=== PATIENT | male | born 1965 | race African-American/Black ===

== ENCOUNTER → 2017-12-08 | Outpatient (CLI) | payer MEDICARE, MEDICAID ==
[~2017-12-08] MED LIST: ASPI-715 PO; ASPI81TA94 PO; CARV25TA77 PO; ENAL2.5T52 PO; HEART; LOR5/325 PO; VALS1TAB72 PO; VALS320T12 PO
[2017-12-08 12:23] LABS: PLATELET COUNT, AUTOMATED 194 K/uL (150-450)
== END ==
LOC: LAB 11:41
PROVIDERS: ATTEND Internal Medicine
DX: I50.42 Chronic combined systolic (congestive) and diastolic (congestive) heart failure (principal)
CPT/HCPCS: 36415; 81001; 82040; 82247; 82310; 82374; 82435; 82465; 82565; 82947; 83718; 84075; 84132; 84155; 84295; 84443; 84450; 84460; 84478; 84520; 85025

== ENCOUNTER → 2018-01-13 | Outpatient (CLI) | payer MEDICARE, MEDICAID | LOC: LAB 12:44 | PROVIDERS: ATTEND Internal Medicine | DX: R53.83 Other fatigue (principal); R17 Unspecified jaundice | CPT/HCPCS: 84443 ==

== ENCOUNTER → 2018-02-22 | Outpatient (CLI) | payer MEDICARE, MEDICAID ==
[~2018-02-22] MED LIST changes: +MULT1CAP59 PO
[2018-02-22 11:59] LABS: PLATELET COUNT, AUTOMATED 204 K/uL (150-450)
== END ==
LOC: LAB 10:47
PROVIDERS: ATTEND Nurse Practitioner Family
DX: R17 Unspecified jaundice (principal)
CPT/HCPCS: 36415; 82040; 82247; 82248; 82310; 82374; 82435; 82565; 82947; 84075; 84132; 84155; 84295; 84450; 84460; 84520; 85025

== ENCOUNTER → 2018-02-25 | Outpatient (CLI) | payer MEDICARE, MEDICAID | LOC: LAB 15:31 | PROVIDERS: ATTEND Nurse Practitioner Family | DX: I50.9 Heart failure, unspecified (principal) | CPT/HCPCS: 36415; 83880 ==

== ENCOUNTER → 2018-02-25 | Outpatient (CLI) | payer MEDICARE, MEDICAID | LOC: US 00:24 | PROVIDERS: ATTEND Nurse Practitioner Family | DX: I51.7 Cardiomegaly (principal); Q21.0 Ventricular septal defect; I34.1 Nonrheumatic mitral (valve) prolapse | CPT/HCPCS: 93325; C8929; Q9957 ==

== ENCOUNTER → 2018-03-23 | Outpatient (CLI) | payer MEDICAID, MEDICARE ==
[~2018-03-23] MED LIST changes: +LOSA25TA50 PO
== END ==
LOC: LAB 15:05
PROVIDERS: ATTEND Internal Medicine
DX: I50.9 Heart failure, unspecified (principal); R17 Unspecified jaundice
CPT/HCPCS: 36415; 82040; 82247; 82310; 82374; 82435; 82565; 82947; 83880; 84075; 84132; 84155; 84295; 84450; 84460; 84520

== ENCOUNTER → 2018-03-26 | Outpatient (CLI) | payer MEDICAID, MEDICARE ==
--- NOTE | 2018-03-26 11:38 | RADIOLOGY IMAGING REPORT ---
[place] [facility] [place]: Denis Gauthier : 1965 MR: [id number] V: [id number] EXAM DATE: ORDERING PHYSICIAN: PATRICIA PIZARRO TECHNOLOGIST: Location: [facility] Patient: Denis Gauthier : 1965 Visit/Account:[id number] Date of Sevice: 03/26/2018 Exam type: ARTERIAL RENAL DUPLEX DOPPLER INDICATION: Chronic kidney disease and hypertension. Comparison: None available Renal ultrasound: The right kidney is normal in size measuring 10.3 x 5.1 x 5.1 cm.. No concerning focal renal lesion. Normal echogenicity. No renal calculus. No hydronephrosis. The left kidney is normal in size measuring 10.1 x 4.4 x 4.5 cm. No concerning focal renal lesion. No rmal echogenicity. No renal calculus. No hydronephrosis. Renal artery stenosis protocol: The renal arteries from their origins at the aorta to the renal guille were evaluated by color, power, and spectral Doppler. The right renal artery was partially visualized and interrogated. The mid artery was not well visual ized The peak systolic velocity in the proximal and distal renal arteries is 37 and 59 cm/s and gives an aorta systolic velocity ratio up to 0.9 (abnormal is greater than 3.5). Estimated diameter reduc tion on the right is 0 - 59 %. The left renal artery was partially visualized and interrogated. The mid artery was not well visuali zed The peak systolic velocity in the proximal and distal renal arteries is 21 and 42 cm/s and gives an aorta systolic velocity ratio up to 1.1 (abnormal is greater than 3.5). Estimated diameter reduct ion on the left is 0 - 59 %. The segmental renal arteries bilaterally demonstrate normal wave forms. Resistive indices of the arcu ate vessels bilaterally are bilaterally less than 0.8 which is normal. I Impression: Renal ultrasound: 1. Normal renal ultrasound. Renal artery stenosis study: 1. No evidence of main renal artery stenosis bilaterally. Estimated diameter reduction bilaterally is 0 - 59 %. Report Dictated By: Ricky Plata MD at 03/26/2018 11:31 AM Report E-Signed By: Ricky Plata MD at 03/26/2018 11:35 AM WSN:[id number]
== END ==
LOC: US 02:52
PROVIDERS: ATTEND Internal Medicine
DX: I12.9 Hypertensive chronic kidney disease with stage 1 through stage 4 chronic kidney disease, or unspecified chronic kidney disease (principal); N18.3 Chronic kidney disease, stage 3 (moderate); I50.9 Heart failure, unspecified; I42.9 Cardiomyopathy, unspecified; R94.5 Abnormal results of liver function studies
CPT/HCPCS: 93975

== ENCOUNTER → 2018-04-15 | Outpatient (CLI) | payer MEDICARE, MEDICAID ==
[~2018-04-15] MED LIST changes: +LISI5TAB25 PO
== END ==
LOC: LAB 14:23
PROVIDERS: ATTEND Internal Medicine
DX: I50.9 Heart failure, unspecified (principal); N18.9 Chronic kidney disease, unspecified; I42.9 Cardiomyopathy, unspecified
CPT/HCPCS: 36415; 82310; 82374; 82435; 82565; 82947; 83880; 84132; 84295; 84520

== ENCOUNTER → 2018-06-11 | Outpatient (CLI) | payer MEDICARE, MEDICAID ==
[~2018-06-11] MED LIST changes: -LOSA25TA50 PO; +LOSA25TA52 PO; +REGADENOSON 0.4 MG/5 ML SYR ONE; +SPIR25TA80 PO
[2018-06-11 12:09] LABS: LDL CHOLESTEROL 35 mg/dl
--- NOTE | 2018-06-12 08:29 | RT STRESS TEST REPORT ---
FACILITY: [facility] PATIENT NAME: EDDIE REYES : [id number] MR: [id number] V: [id number] EXAM DATE: ORDERING PHYSICIAN: NESTOR GOMEZ TECHNOLOGIST: [employer] Time: 2018-06-11 14:45:29 Total Exercise Time: 00:01:00 Test Indications: CHF Medications: see nuc med sheet Protocol: LEXISCAN Max HR: 080 BPM 48% of Pred: 166 BPM Max BP: 124/103 mmHG Max Work Load: 1.0 METS Confirmed by MEGAN BLANCO ([id number]) on 06/12/2018 8:28:37 AM Referred By: Overread By: MEGAN BLANCO
--- NOTE | 2018-06-13 08:16 | RADIOLOGY IMAGING REPORT ---
[place] [facility] [place] NAME: Denis Gauthier : 1965 MR: [id number] V: [id number] EXAM DATE: [id number] ORDERING PHYSICIAN: NESTOR GOMEZ TECHNOLOGIST: [place] [facility] [place] Patient: Denis Gauthier : 1965 Visit/Account:[id number] Date of Sevice: 06/11/2018 EXAMINATION: Single isotope SPECT imaging with regadenoson infusion and gated SPECT imaging. DATE OF EXAMINATION: 06/11/2018. DATE OF INTERPRETATION: 06/13/2018. REQUESTING PHYSICIAN: NESTOR GOMEZ. INDICATION: The patient is a 53-year-old male evaluated for CAD. PROCEDURE: After informed consent the patient received an intravenous injection of 12.5 mCi of Tc-99 m sestamibi followed at an appropriate time interval by rest imaging. The patient then subsequently received an intravenous infusion of 0.4 mg of regadenoson per protocol without complication. Resting heart rate was 71 bpm with a peak heart rate of 78 bpm. Blood pressure at rest was 124 / 103 and fo llowing infusion was 124 / 96. Baseline EKG demonstrates sinus rhythm with lateral T-wave inversions . There were no EKG changes of ischemia following infusion. Symptoms were nonspecific. The patient then received an intravenous injection of 30.6 mCi of Tc-99m sestamibi followed by stress imaging. RAW DATA: Examination of the summed raw data revealed a good quality study. MYOCARDIAL PERFUSION: The tomographic images demonstrate a mild inferior defect that is small in siz e at rest which improves with prone imaging, most consistent with diaphragmatic attenuation. There is otherwise normal myocardial perfusion with no evidence of infarct or ischemia. There is no TID. GATED IMAGES: The gated images demonstrate severely diminished ejection fraction 17% with global hyp okinesis. IMPRESSION: 1. Nondiagnostic Lexiscan stress ECG 2. Normal myocardial perfusion scan with evidence of diaphragmatic attenuation. 3. Severely decreased LV systolic function; LVEF 17%. 4. Based on the results of this exam, the patient appears to be at high risk for future cardiovascula r events because of decreased ejection fraction. Report Dictated By: Stone Alicea at 06/13/2018 8:09 AM Report E-Signed By: Stone Alicea at 06/13/2018 8:12 AM WSN:[id number]
== END ==
LOC: NUC 04:07
PROVIDERS: ATTEND Internal Medicine Cardiovascular Disease
DX: I50.22 Chronic systolic (congestive) heart failure (principal)
CPT/HCPCS: 36415; 78452; 85027; 93017; A9500; J2785; 82310; 82374; 82435; 82465; 82565; 82947; 83718; 84132; 84295; 84478; 84520

== ENCOUNTER 2018-08-06 13:35 | Emergency (ER) | payer MEDICARE, MEDICAID ==
[~2018-08-06 13:35] MED LIST changes: -REGADENOSON 0.4 MG/5 ML SYR ONE
--- NOTE | 2018-08-06 13:43 | ER Report ---
History and Physical Time Seen By MD: 13:44 HPI/ROS This is a 53-year-old male with a history of cardiomyopathy and an EF of less than 20%. He presents emergency department stating that when he got out of bed this morning, his legs felt "heavy" underneath him. His legs subsequently buckled and he lowered himself to the floor. He denies syncope. No chest pain or headache. He did not strike his head. He denies pain in his lower extremities. There was some confusion as to whether he was complaining of pain in his right hip but he denies pain in his hip or knee during my interview with him. His only complaint is the episode that happened when he woke up this morning. He currently denies any complaints. Remainder of the 14 system rev: Yes Allergies: Coded Allergies: No Known Drug Allergies (Verified , 02/03/18) verified 02/03/2018 Home Meds Active Scripts Furosemide (FUROSEMIDE) 20 Mg Tablet, 1 TAB PO QDAY for 14 Days, #14 TAB Prov:ZENA GEORGE MD 08/06/18 Spironolactone (SPIRONOLACTONE) 25 Mg Tablet, 25 MG PO QAM, #30 TAB 3 Refills Prov:PATRICIA PIZARRO MD 04/28/18 Carvedilol (COREG) 25 Mg Tablet, 1 MG PO BID for 90 Days, #90 TAB Prov:PATRICIA PIZARRO MD 03/16/18 Reported Medications Lisinopril (LISINOPRIL) 5 Mg Tablet, 5 MG PO QDAY, TAB 04/16/18 Multivitamin (MULTIVITAMINS) 1 Each Capsule, 1 TAB PO QAM, CAPSULE 02/03/18 Aspirin (ASPIRIN) 81 Mg Tab.chew, 1 TAB PO QDAY, TAB.CHEW 02/18/17 Reviewed Nurses Notes: Yes Old Medical Records Reviewed: Yes Hx Smoking: No Smoking Status: Never Smoker Hx Substance Use Disorder: No Hx Alcohol Use: No Constitutional Vital Sign - Last 24 Hours 08/06/18 08/06/18 08/06/18 08/06/18 13:35 13:47 13:49 14:00 Temp 97.7 Pulse ??? 84 Resp 20 B/P (MAP) 125/104 (111) 125/104 117/102 (107) Pulse Ox 93 O2 Delivery Room Air 1108/06/18 08/06/18 08/06/18 14:05 14:30 14:35 15:00 Pulse 82 76 Resp 28 22 B/P (MAP) 111/94 (100) 110/93 (99) Pulse Ox 92 92 08/06/18 15:05 Pulse 77 Resp 17 Pulse Ox 88 Physical Exam General Appearance: The patient is alert, has no immediate need for airway protection and no current signs of toxicity. Eyes: Pupils equal and round no injection. Respiratory: Chest is non tender, lungs are clear to auscultation. Cardiac: regular rate and rhythm Gastrointestinal: Abdomen is soft and non tender, no masses, bowel sounds normal. Musculoskeletal: No spinal TTP Neck: Neck is supple and non tender. Extremities have full range of motion and are non tender. There is 3+ pitting edema b/l to his thighs. Skin: No rashes or lesions. DIFFERENTIAL DIAGNOSIS: After history and physical exam differential diagnosis was considered for syncope, dysrhythmia, CHF exacerbation, traumatic injuries from a fall, electrolyte disturbance, fluid retention, DVT. Medical Decision Making Data Points Result Diagram: 08/06/18 1430 08/06/18 1430 Laboratory Hematology Test 08/06/18 14:30 Red Blood Count 4.75 M/uL (4.00-5.60) Mean Corpuscular Volume 94.3 fL (80.0-96.0) Mean Corpuscular Hemoglobin 30.6 pg (26.0-33.0) Mean Corpuscular Hemoglobin Concent 32.4 g/dL (32.0-36.0) Red Cell Distribution Width 17.5 % (11.5-14.5) Mean Platelet Volume 9.1 fL (7.2-11.1) Neutrophils (%) (Auto) 68.0 % (39.4-72.5) Lymphocytes (%) (Auto) 18.1 % (17.6-49.6) Monocytes (%) (Auto) 9.7 % (4.1-12.4) Eosinophils (%) (Auto) 2.9 % (0.4-6.7) Basophils (%) (Auto) 1.3 % (0.3-1.4) Nucleated RBC Relative Count (auto) 0.1 /100WBC Neutrophils # (Auto) 3.1 K/uL (2.0-7.4) Lymphocytes # (Auto) 0.8 K/uL (1.3-3.6) Monocytes # (Auto) 0.4 K/uL (0.3-1.0) Eosinophils # (Auto) 0.1 K/uL (0.0-0.5) Basophils # (Auto) 0.1 K/uL (0.0-0.1) Nucleated RBC Absolute Count (auto) 0.00 K/uL Sodium Level 142 mmol/L (137-145) Potassium Level 3.9 mmol/L (3.5-5.0) Chloride Level 111 mmol/L (98-107) Carbon Dioxide Level 21 mmol/L (22-30) Blood Urea Nitrogen 31 mg/dl (9-21) Creatinine 1.20 mg/dl (0.66-1.25) Glomerular Filtration Rate Calc > 60.0 Random Glucose 111 mg/dl (75-110) Calcium Level 8.8 mg/dl (8.4-10.2) Total Bilirubin 1.5 mg/dl (0.2-1.3) Aspartate Amino Transf (AST/SGOT) 19 U/L (0-35) Alanine Aminotransferase (ALT/SGPT) 30 U/L (0-56) Alkaline Phosphatase 142 U/L (0-126) Total Protein 6.4 g/dl (6.3-8.2) Albumin 3.4 g/dl (3.5-5.0) Chemistry Test 08/06/18 14:30 White Blood Count 4.5 k/uL (4.5-11.0) Red Blood Count 4.75 M/uL (4.00-5.60) Hemoglobin 14.5 g/dL (14.0-18.0) Hematocrit 44.8 % (42.0-52.0) Mean Corpuscular Volume 94.3 fL (80.0-96.0) Mean Corpuscular Hemoglobin 30.6 pg (26.0-33.0) Mean Corpuscular Hemoglobin Concent 32.4 g/dL (32.0-36.0) Red Cell Distribution Width 17.5 % (11.5-14.5) Platelet Count 129 K/uL (150-450) Mean Platelet Volume 9.1 fL (7.2-11.1) Neutrophils (%) (Auto) 68.0 % (39.4-72.5) Lymphocytes (%) (Auto) 18.1 % (17.6-49.6) Monocytes (%) (Auto) 9.7 % (4.1-12.4) Eosinophils (%) (Auto) 2.9 % (0.4-6.7) Basophils (%) (Auto) 1.3 % (0.3-1.4) Nucleated RBC Relative Count (auto) 0.1 /100WBC Neutrophils # (Auto) 3.1 K/uL (2.0-7.4) Lymphocytes # (Auto) 0.8 K/uL (1.3-3.6) Monocytes # (Auto) 0.4 K/uL (0.3-1.0) Eosinophils # (Auto) 0.1 K/uL (0.0-0.5) Basophils # (Auto) 0.1 K/uL (0.0-0.1) Nucleated RBC Absolute Count (auto) 0.00 K/uL Glomerular Filtration Rate Calc > 60.0 Calcium Level 8.8 mg/dl (8.4-10.2) Total Bilirubin 1.5 mg/dl (0.2-1.3) Aspartate Amino Transf (AST/SGOT) 19 U/L (0-35) Alanine Aminotransferase (ALT/SGPT) 30 U/L (0-56) Alkaline Phosphatase 142 U/L (0-126) Total Protein 6.4 g/dl (6.3-8.2) Albumin 3.4 g/dl (3.5-5.0) ED Course/Re-evaluation ED Course I asked the patient multiple times and he denies syncope. He did not have a true fall from standing, but instead said his legs felt heavy and buckled underneath of him. I think the having this he feels is from his bilateral lower extremity peripheral edema. Weight him in the emergency department and he is 6 kg heavier then when he saw guillaume Elias in April 2018. I spoke with Dr. Elias about his worsening peripheral edema and weight gain. Again the patient denies chest pain or shortness of breath. He was given Lasix 20mg PO, and will be placed on Lasix 20mg qd and follow up with Dr. Elias next week. Decision to Disposition Date: Aug 06, 2018 Decision to Disposition Time: 16:19 Depart Departure Latest Vital Signs Vital Signs Date Time Temp Pulse Resp B/P (MAP) Pulse Ox O2 Delivery O2 Flow Rate FiO2 08/06/18 15:05 77 17 88 08/06/18 15:00 110/93 (99) 08/06/18 13:49 97.7 Room Air Impression: Primary Impression: Edema extremities Condition: Improved Disposition: HOME OR SELF-CARE Referrals: PATRICIA PIZARRO MD (PCP) New Scripts Furosemide (FUROSEMIDE) 20 Mg Tablet 1 TAB PO QDAY for 14 Days, #14 TAB Prov: ZENA GEORGE MD 08/06/18 Patient Instructions: Leg Edema (ED) ZENA GEORGE MD Aug 06, 2018 13:43
--- NOTE | 2018-08-06 14:19 | EKG ---
FACILITY: [facility] PATIENT NAME: EDDIE REYES : [id number] MR: [id number] V: [id number] EXAM DATE: ORDERING PHYSICIAN: ZENA GEORGE TECHNOLOGIST: PRADEEP Fowler Reason : SYNCOPE Blood Pressure : / mmHG Vent. Rate : 077 BPM Atrial Rate : 077 BPM P-R Int : 138 ms QRS Dur : 118 ms QT Int : 432 ms P-R-T Axes : 046 -52 124 degrees QTc Int : 488 ms Normal sinus rhythm Possible Left atrial enlargement Left axis deviation Anterior infarct , age undetermined T wave abnormality, consider lateral ischemia Abnormal ECG No previous ECGs available Confirmed by RAMONITA WALLACE ([id number]) on 08/06/2018 8:54:00 PM Referred By: DORIS Confirmed By:RAMONITA WALLACE
[2018-08-06 14:39] LABS: PLATELET COUNT, AUTOMATED 129 K/uL (150-450)
[2018-08-06 15:30] VITALS: BP 129/93
[2018-08-06] MEDS ORDERED: FUROSEMIDE 20 MG TAB PO ONE (15:35)
[2018-08-06] MEDS ORDERED: FURO-45 PO (15:52)
[2018-08-09] MEDS ORDERED: LISI20TA29 PO (10:12)
[2018-08-09] MEDS ORDERED: SPIR50TA30 PO (10:12)
[2018-08-09] MEDS ORDERED: PNEI IJ (10:17)
[2018-08-09] MEDS ORDERED: FLU60SYR36 IM (10:17)
[2018-08-09] MEDS ORDERED: FURO-45 PO (10:18)
== END 2018-08-06 16:12 | disposition home or self-care (01) ==
LOC: ER 13:53
DX: R60.0 Localized edema (principal); R94.31 Abnormal electrocardiogram [ECG] [EKG]
CPT/HCPCS: 36415; 85025; 93005; 99283; A9270; 82040; 82247; 82310; 82374; 82435; 82565; 82947; 84075; 84132; 84155; 84295; 84450; 84460; 84520

== ENCOUNTER → 2018-08-26 | Outpatient (CLI) | payer MEDICARE, MEDICAID ==
[~2018-08-26] MED LIST changes: +FLU60SYR36 IM; +FURO-45 PO; +LISI20TA29 PO; -LOSA25TA52 PO; +LOSA25TA57 PO; +PNEI IJ; +SPIR50TA30 PO
[2018-08-26 16:34] LABS: PLATELET COUNT, AUTOMATED 171 K/uL (150-450)
== END ==
LOC: LAB 15:35
PROVIDERS: ATTEND Internal Medicine
DX: R60.0 Localized edema (principal); I50.9 Heart failure, unspecified; I42.9 Cardiomyopathy, unspecified
CPT/HCPCS: 36415; 83880; 84443; 85025; G0103; 82040; 82247; 82310; 82374; 82435; 82565; 82947; 84075; 84132; 84153; 84155; 84295; 84450; 84460; 84520

== ENCOUNTER → 2018-10-14 | Outpatient (CLI) | payer MEDICARE, MEDICAID | LOC: US 10-12 13:25 | PROVIDERS: ATTEND Internal Medicine Cardiovascular Disease | DX: I51.7 Cardiomegaly (principal) | CPT/HCPCS: C8929; Q9957 ==

== ENCOUNTER → 2018-11-10 | Outpatient (CLI) | payer MEDICARE, MEDICAID | LOC: LAB 13:27 | PROVIDERS: ATTEND Internal Medicine Cardiovascular Disease | DX: I42.0 Dilated cardiomyopathy (principal) | CPT/HCPCS: 36415; 82310; 82374; 82435; 82565; 82947; 83880; 84132; 84295; 84520 ==

== ENCOUNTER → 2018-12-07 | Outpatient (CLI) | payer MEDICARE, MEDICAID | LOC: LAB 13:44 | PROVIDERS: ATTEND Internal Medicine Cardiovascular Disease | DX: I42.0 Dilated cardiomyopathy (principal) | CPT/HCPCS: 36415; 82310; 82374; 82435; 82565; 82947; 84132; 84295; 84520 ==

== ENCOUNTER → 2019-02-02 | Outpatient (CLI) | payer MEDICARE, MEDICAID | LOC: LAB 14:29 | PROVIDERS: ATTEND Internal Medicine Cardiovascular Disease | DX: I42.0 Dilated cardiomyopathy (principal); I50.22 Chronic systolic (congestive) heart failure | CPT/HCPCS: 36415; 82310; 82374; 82435; 82565; 82947; 83880; 84132; 84295; 84520 ==